=== PATIENT | male | born 1960 | race Caucasian/White ===

== ENCOUNTER 2019-09-15 10:56 | Emergency (ER) | payer BC ==
[~2019-09-15] VITALS: Ht 180.3 cm; Wt 106.6 kg
[2019-09-15] MEDS ORDERED: ATORVASTATIN CA80 MG PO (11:10)
[2019-09-15] MEDS ORDERED: JARDIANCE25 MG PO (11:10)
[2019-09-15] MEDS ORDERED: CARVEDILOL25 MG PO (11:11)
[2019-09-15] MEDS ORDERED: CHLORTHALIDONE25 MG PO (11:11)
[2019-09-15] MEDS ORDERED: PIOGLITAZONE30 MG PO (11:12)
[2019-09-15] MEDS ORDERED: GLYBURIDE 2.52.5 M1 PO (11:12)
[2019-09-15] MEDS ORDERED: LOSARTAN POTAS100 MG PO (11:12)
[2019-09-15] MEDS ORDERED: LEVEMIR FL100 UNIT/2 SUBQ (11:13)
[2019-09-15 11:40] LABS: ABSOLUTE NEUTROPHILS 7.5 thou/uL (1.4-8.2); BASOPHILS 0.5 % (0.0-2.0); HEMATOCRIT 40.7 % (42.0-52.0); HEMOGLOBIN 13.7 gm/dL (14.0-18.0); LYMPHOCYTES 15.7 % (24.0-44.0); MCH 32.2 pg (26.0-34.0); MCHC 33.6 g/dL (28.0-37.0); MCV 95.8 fL (80.0-100.0); PLATELET COUNT 225 thou/uL (150-400); POLYS 70.8 % (36.0-66.0); RBC 4.24 mil/uL (4.50-6.00); RDW 12.9 % (10.5-14.5); WBC 10.5 thou/uL (4.0-11.0)
[2019-09-15 11:48] LABS: ANION GAP 8 mmol/L (7-16); BUN 23 mg/dL (7-18); CALCIUM 10.5 mg/dL (8.5-10.1); CHLORIDE 99 mmol/L (98-107); CO2 30 mmol/L (21-32); CREATININE 1.7 mg/dL (0.7-1.3); GLUCOSE 78 mg/dL (74-106); POTASSIUM 3.6 mmol/L (3.5-5.1); SODIUM 137 mmol/L (136-145)
[2019-09-15 11:59] LABS: ALBUMIN 3.9 g/dL (3.4-5.0); LIPASE 252 U/L (73-393); SGOT 19 U/L (15-37); SGPT 23 U/L (30-65); TOTAL BILIRUBIN 1.6 mg/dL (<0.1-1.0); TOTAL PROTEIN 8.4 g/dL (6.4-8.2); TROPONIN-I <0.06 ng/mL (<0.06)
[2019-09-15] MEDS ORDERED: MOBIC7.5 MG PO (12:37)
[2019-09-15 13:13] VITALS: BP 117/63
--- NOTE | 2019-09-15 19:24 | EKG ---
[address] [place] [address] ELECTROCARDIOGRAM REPORT Name: JUNITOMARK Room #: [facility] Colby#: [id number] Admission: 09/15/19 Attend Phys: Discharge: 09/15/19 Date of : 58 Report #: [id number] THIS REPORT FOR: //name// [facility] ED Test Date: 2019-09-15 Test Time: 11:01:19 Pat Name: MARK WILD Department: Room: Gender: Developer Programmer: SHAYY : 1960 Requested By: Minerva Wilson Order Number: [id number] MD: Johnny Hills Measurements Intervals [place] Rate: 64 P: 33 WA: 174 QRS: 19 QRSD: 91 T: 174 QT: 422 QTc: 436 Interpretive Statements Sinus rhythm Probable left atrial enlargement Repol abnrm suggests ischemia, anterolateral No previous ECG available for comparison Electronically Signed On 09-15-2019 19:24:17 LINEN ATTENDANT by Johnny Hills [email or web address] <ELECTRONICALLY SIGNED> By: Johnny Hills MD, [facility] 09/15/19 1924 1101 1101 Johnny Hills MD, FACC /EPI
== END 2019-09-15 13:13 | disposition home or self-care (01) ==
LOC: ER 10:56
PROVIDERS: Nurse Practitioner Family
DX: M25.512 Pain in left shoulder (principal); E78.5 Hyperlipidemia, unspecified

== ENCOUNTER → 2019-10-15 | Outpatient (CLI) | payer OTHER ==
[~2019-10-15] MED LIST: ATORVASTATIN CA80 MG PO; CARVEDILOL25 MG PO; CHLORTHALIDONE25 MG PO; GLYBURIDE 2.52.5 M1 PO; JARDIANCE25 MG PO; LEVEMIR FL100 UNIT/2 SUBQ; LOSARTAN POTAS100 MG PO; MOBIC7.5 MG PO; PIOGLITAZONE30 MG PO
== END ==
LOC: CAT 09:22
DX: Z13.6 Encounter for screening for cardiovascular disorders (principal); E78.00 Pure hypercholesterolemia, unspecified; I25.10 Atherosclerotic heart disease of native coronary artery without angina pectoris

== ENCOUNTER → 2019-12-03 | Outpatient (CLI) | payer BC | LOC: SJCVCIMAG 09:34 | DX: I34.0 Nonrheumatic mitral (valve) insufficiency (principal); I10 Essential (primary) hypertension; E78.5 Hyperlipidemia, unspecified; I42.2 Other hypertrophic cardiomyopathy; E11.9 Type 2 diabetes mellitus without complications ==

== ENCOUNTER → 2021-08-07 | Outpatient (CLI) | payer BC | LOC: SJCVCIMAG 08:20 | PROVIDERS: ATTEND Internal Medicine Cardiovascular Disease | DX: I34.0 Nonrheumatic mitral (valve) insufficiency (principal); I25.10 Atherosclerotic heart disease of native coronary artery without angina pectoris; I10 Essential (primary) hypertension; E78.5 Hyperlipidemia, unspecified; R06.00 Dyspnea, unspecified; E11.9 Type 2 diabetes mellitus without complications; E78.00 Pure hypercholesterolemia, unspecified; I42.2 Other hypertrophic cardiomyopathy; Z79.899 Other long term (current) drug therapy; Z72.89 Other problems related to lifestyle ==